=== PATIENT | female | born 1935 | race Caucasian/White ===

== ENCOUNTER → 2017-06-10 | Outpatient (CLI) | payer OTHER ==
[~2017-06-10] MED LIST: AMLO10TA2 PO; ASPI325T PO; ASPI81 PO; ATOR40TA16 PO; COMMODE 3-IN-11 MIS; DICL-86 PO; ENAL20TA81 PO; ENOX40P SQ; LOSA25TA PO; MELO-1 PO; METO25TA3 PO; METO50TA PO; MULTTAB67 PO; NORC5TAB PO; OMEP20CA5 PO; OXYC-360 PO; PRAM0.25 PO; TAB-TAB PO; TRAM50TA PO; WALKER WHEELS/F1 MIS
== END ==
LOC: CPRE 11:49
PROVIDERS: ATTEND Orthopaedic Surgery
DX: Z01.818 Encounter for other preprocedural examination (principal)

== ENCOUNTER 2017-06-29 05:09 | Inpatient (IN) | payer OTHER, MEDICARE ==
[~2017-06-29] VITALS: Ht 162.6 cm; Wt 85.0 kg
[~2017-06-29 05:09] MED LIST changes: -COMMODE 3-IN-11 MIS; -ENOX40P SQ; -NORC5TAB PO; -WALKER WHEELS/F1 MIS
[2017-06-29] MEDS ORDERED: CHLORHEXIDINE GLUCONATE 2 % 1 PACK (2 CLOTHS) TOPICAL PRN (05:30)
[2017-06-29] MEDS ORDERED: TRANEXAMIC ACID INJ 850 MG in SODIUM CHLORIDE 0.9% INJ 100 ML IV SCH ×2 (05:30→10:00)
[2017-06-29] MEDS ORDERED: SODIUM CHLORID 0.9% 500 ML IV PRN (05:30)
[2017-06-29] MEDS ORDERED: LACTATED RINGER'S 1000 ML IV PRN (05:30)
[2017-06-29] MEDS ORDERED: DEXAMETHASONE SOD PHOS 20 MG/5 ML VIAL IV PRN (05:30)
[2017-06-29] MEDS ORDERED: VANCOMYCIN 1000 MG/NS 250 ML (for <70 kg) IV SCH ×2 (05:30)
[2017-06-29] MEDS ORDERED: POVIDONE IODINE 7.5% SCRUB 118 ML BOTTLE TOPICAL SCH (05:30)
[2017-06-29] MEDS ORDERED: ceFAZolin 2 GM PREMIX 50 ML IV SCH (05:30)
[2017-06-29] MEDS ORDERED: INSULIN HUMAN REGULAR 1,000 UNITS/10 ML VIAL SQ PRN (05:30)
[2017-06-29] MEDS ORDERED: EXPAREL PERI-ARTICULAR INJECTION (TOTAL VOL. 60 ML) P-ARTICULR SCH ×2 (05:30)
[2017-06-29] MEDS ORDERED: POVIDONE IODINE 5% (ANTISEPSIS KIT) 4 APPLICATIONS EACH NARE PRN (05:30)
[2017-06-29] MEDS ORDERED: METOPROLOL TARTRATE 25 MG TAB PO PRN (05:30)
[2017-06-29] MEDS ORDERED: GENTAMICIN SULFATE 80 MG/2 ML VIAL ONE (06:22)
[2017-06-29] MEDS ORDERED: ACETAMINOPHEN 1000 MG/100 ML 100 ML IV ONE (06:41)
--- NOTE | 2017-06-29 06:47 | HHI.DCPOC ---
Discharge Care Plan Diagnosis: (1) Osteoarthritis of left hip (2) Status post total hip replacement, left Your Health Problems Are: Difficulty with ADL Goals to Promote Your Health * To prevent worsening of your condition and complications * To maintain your health at the optimal level Directions to Meet Your Goals Take your medications as prescribed Follow your dietary instruction Follow activity as directed Keep your appointments as scheduled Take your immunizations and boosters as scheduled If your symptoms worsen call your PCP, if no PCP go to Urgent Care Center or Emergency Room Smoking is Dangerous to Your Health. Avoid second hand smoke Call the 24-hour hour crisis hotline for domestic abuse at Reilly Hernandez Jun 29, 2017 06:47
--- NOTE | 2017-06-29 06:48 | HHI.FF ---
Face to Face Verification Diagnosis: (1) Osteoarthritis of left hip (2) Status post total hip replacement, left Physical Therapy Gait training, Transfer training, bed to chair Hip: Total hip Left LE Weight Bearing: WB as tolerated Left LE Range of Motion: Active ROM Nursing Nursing: Gallo teaching, Dressing changes Dressing Changes: Daily dressing change I have seen patient More Bardales on 06/29/17. My clinical findings support the need for the requested home health care services because: Limited ability to care for self High risk of falls I certify that my clinical findings support that this patient is homebound because: Post-op weakness Unsteady gait/balance Reilly Hernandez Jun 29, 2017 06:48
[2017-06-29] MEDS ORDERED: WALKER WHEELS/F1 MIS (06:49)
[2017-06-29] MEDS ORDERED: COMMODE 3-IN-11 MIS (06:49)
[2017-06-29] MEDS ORDERED: MIDAZOLAM HCL 2 MG/2 ML VIAL ONE (06:49)
--- NOTE | 2017-06-29 08:43 | PD.OP ---
cc: Chance Matias MD Operative Report Date of Surgery: Jun 29, 2017 Preoperative Diagnosis: Left hip severe osteoarthritis Postoperative Diagnosis: Same Procedure: Left total hip arthroplasty Anesthesia: Gen. Surgeon: Chance Matias Artificial Plastic Eye Maker(s): JUDITH Robbins The surgical procedure was assisted by my Advanced Registered Nurse Practitioner. My TIMBER MANAGEMENT ASSISTANT presence was necessary throughout this case for the manipulation and positioning of the surgical extremity. My TIMBER MANAGEMENT ASSISTANT was assisting me throughout the duration of this procedure. The skill set of an Advance Registered Nurse Practitioner was medically necessary to complete this procedure. During the surgical case, the pbx technician was working at the back table and the Advance Registered Nurse Practitioner was directly assisting me. Operation and Findings: IMPLANT DESCRIPTION: 1. Durand Gription Cup, acetabular size 48. 2. Durand AltrX polyethylene, neutral. 4. Corail femoral stem size 11, no collar, high offset. 5. Femoral head/neck metal, 32, +1. ESTIMATED BLOOD LOSS: 200 cc. JUSTIFICATION FOR PROCEDURE: The patient has end-stage osteoarthritis to the hip. There is an attached conservative measures pathway form in the chart that describes the nonoperative measures that were undertaken prior to consideration of surgical management. The patient understood the risks and benefits of surgical management. See my office notes for further details. PROCEDURE: The patient was brought back to the operative theatre. Adequate anesthesia was obtained. The patient received intravenous vancomycin and Ancef. The patient was carefully placed on the operative table. The lower extremity was prepped and draped in the usual sterile fashion. Fluoroscopic images were obtained. We made a standard anterior incision over the hip. We dissected through the TFL fascia, exposing the anterior capsule. Arthrotomy was performed in a T-shaped fashion. The capsule was tagged with a #2 FiberWire. End-stage arthritis was identified. Osteotomy was performed through the femoral neck exposing the acetabulum. Remnants of the labrum were resected and osteophytes were removed. We sequentially reamed the acetabulum. We trialed the hip and placed the final cup into position. This was done under fluoroscopic guidance to obtain the appropriate inclination and anteversion. A manhole cover was placed into the acetabular component. We then placed the final polyethylene into position and confirmed that it was well seated. Capsular attachments on the calcar and the inner aspect of the greater trochanter were resected. On the proximal aspect of the femur we used a rongeur , box osteotome, canal finder, sequential broaches and lateralizing rasp. We calcar planed the proximal femur. Then thoroughly irrigated the wound. We trialed the hip with the appropriate size stem. We placed the final stem in to position and trialed again. The hip was stable while it was externally rotated 70 degrees when the leg was lowered to the floor. The final head was applied, and final fluoroscopic images were obtained. The wound was thoroughly irrigated again. Interarticular injection of liposomal bupivacaine was given. The capsule was closed with #2 FiberWire and #1 Vicryl. The deep fascia was closed with a #2 Stratafix, followed by 2-0 Vicryl in the skin and cherrie. Postop plan is to weight-bear as tolerated. DVT prophylaxis will be performed with Manoj, ARIELLA evans, early mobilization, and Lovenox followed by aspirin. Chance Matias MD Jun 29, 2017 08:43
[2017-06-29] MEDS ORDERED: NORC5TAB PO (08:45)
[2017-06-29] MEDS ORDERED: MORPHINE SULFATE 4 MG/ML INJ IV PUSH PRN (08:45)
[2017-06-29] MEDS ORDERED: ACETAMINOPHEN/HYDROcodone 325 MG/5 MG TAB PO PRN (08:45)
[2017-06-29] MEDS ORDERED: NALOXONE HCL 0.4 MG/ML AMP IV PRN (08:45)
[2017-06-29] MEDS ORDERED: Post-op Orders (for Pharmacy) MISC XX ONE (08:45)
[2017-06-29] MEDS ORDERED: ALUMINUM/MAGNESIUM/SIMETH 30 ML CUP PO PRN (08:45)
[2017-06-29] MEDS ORDERED: MAGNESIUM HYDROXIDE SUSP 30 ML CUP PO PRN (08:45)
[2017-06-29] MEDS ORDERED: diphenhydrAMINE HCL 50 MG/ML VIAL IV PRN (08:45)
[2017-06-29] MEDS ORDERED: ENOX40P SQ (08:45)
[2017-06-29] MEDS ORDERED: ASPI325T PO (08:45)
[2017-06-29] MEDS ORDERED: SODIUM CHLORIDE 0.9% FLUSH 5 ML FLUSH IVF PRN (08:45)
[2017-06-29] MEDS ORDERED: BISACODYL 10 MG SUPP RECTAL PRN (08:45)
[2017-06-29] MEDS ORDERED: ONDANSETRON HCL 4 MG/2 ML VIAL IVP PRN (08:45)
[2017-06-29] MEDS ORDERED: DO NOT ADM ANY ANTICOAGULANT DRUGS PRN (09:04)
[2017-06-29] MEDS ORDERED: *morphine SULFATE 8 MG/ML PERIprocedure ONLY ONE ×2 (09:15→09:25)
[2017-06-29] MEDS: SODIUM CHLOR 0.9% 1000 ML INJ 1,000 ML IV SCH ×2 (09:18→18:40)
--- NOTE | 2017-06-29 09:30 | RADRPT ---
EXAM DATE/TIME: 06/29/2017 07:23 [facility] COMPARISON: No previous studies available for comparison. INDICATIONS : Post-op total left hip arthroplasty. MEDICAL HISTORY : None. SURGICAL HISTORY : Right total hip arthroplasty. ENCOUNTER: Initial ACUITY: 1 day PAIN SCORE: Non-responsive. LOCATION: Left hip. FINDINGS: The patient is status post a total hip arthroplasty with a bipolar prosthesis. Prosthesis is well-sea tomy. Alignment is anatomic. A fracture is not appreciated. CONCLUSION: Anatomic alignment. Carlos Ovalle MD FACR Board Certified Radiologist. This report was verified electronically.
[2017-06-29] MEDS ORDERED: *HYDROmorphone PF 1 MG VIAL PERIprocedural Use ONLY ONE (09:38)
[2017-06-29] MEDS: PRAMIPEXOLE DIHYDROCHLORIDE 0.25 MG TAB PO SCH (10:00)
--- NOTE | 2017-06-29 10:10 | RADRPT ---
EXAM DATE/TIME: 06/29/2017 09:29 [facility] COMPARISON: HIP LEFT (AP&LAT 2/3VWS) WO AP PELVIS, June 29, 2017, 7:23. INDICATIONS : Post-op left total hip arthroplasty. MEDICAL HISTORY : None. SURGICAL HISTORY : Right total hip arthroplasty. ENCOUNTER: Subsequent ACUITY: 1 day PAIN SCORE: 8/10 LOCATION: Left hip FINDINGS: There are bilateral hip arthroplasties. The orthopedic hardware appears well-positioned. No acute fra cture is seen. The arthroplasty on the left is new. The hardware appears well centered within the femur and in the a cetabulum. There is no evidence of complication. CONCLUSION: 1. The left hip arthroplasty appears in good position. Reilly Ovalle MD on June 29, 2017 at 10:08 Board Certified Radiologist. This report was verified electronically.
[2017-06-29 12:00] VITALS: BP 106/65; PULSE 84; RESP 16; TEMP 96.4; O2SAT 97
[2017-06-29] MEDS ORDERED: NEOSTIGMINE 3 MG/3 ML SYR IV ONE (12:00)
[2017-06-29] MEDS ORDERED: LACTATED RINGER'S 1000 ML INJ 1,000 ML IV ONE (12:00)
[2017-06-29] MEDS ORDERED: LIDOCAINE HCL 1% PF 5 ML AMPULE OTHER ONE (12:00)
[2017-06-29] MEDS ORDERED: GLYCOPYRROLATE 1 MG/5 ML SYRINGE IV PUSH ONE (12:00)
[2017-06-29] MEDS ORDERED: DEXAMETHASONE SOD PHOS 4 MG/ML VIAL IV ONE (12:00)
[2017-06-29] MEDS ORDERED: ROCURONIUM INJ 50 MG/5 ML SYRINGE IV PUSH ONE (12:00)
[2017-06-29] MEDS ORDERED: ONDANSETRON HCL 4 MG/2 ML VIAL IV PUSH ONE (12:00)
[2017-06-29] MEDS ORDERED: hydrALAZINE HCL 20 MG/ML VIAL IV ONE (12:00)
[2017-06-29] MEDS ORDERED: MORPHINE SULFATE 4 MG/ML INJ IV ONE (12:00)
[2017-06-29] MEDS ORDERED: LOSARTAN 50 MG TAB PO ONE (13:00)
[2017-06-29] MEDS: ACETAMINOPHEN/HYDROcodone 325 MG/5 MG TAB PO PRN ×3 (14:21→23:30)
[2017-06-29 16:00] VITALS: BP 118/57; PULSE 56; RESP 16; TEMP 96.7; O2SAT 95
[2017-06-29 16:39] VITALS: O2SAT 97
[2017-06-29 19:00] VITALS: BP 117/44; PULSE 58; RESP 17; TEMP 96.2; O2SAT 94
[2017-06-29] MEDS ORDERED: ZOLPIDEM TARTRATE 5 MG TAB PO PRN (21:00)
[2017-06-29] MEDS: SODIUM CHLORIDE 0.9% FLUSH 5 ML FLUSH IVF SCH (21:00)
[2017-06-29] MEDS ORDERED: ATORVASTATIN 40 MG TAB PO SCH (21:00)
[2017-06-29] MEDS: METOPROLOL TARTRATE 25 MG TAB PO SCH (21:09)
[2017-06-30] VITALS: BP 126/63; PULSE 57; RESP 16; TEMP 95.5; O2SAT 94
[2017-06-30] MEDS: SODIUM CHLOR 0.9% 1000 ML INJ 1,000 ML IV SCH (04:40)
[2017-06-30 07:00] LABS: HEMATOCRIT 28.8 % (35.0-46.0); MEAN CELL VOLUME 87.3 FL (80.0-100.0); MEAN CORPUSCULAR HEMOGLOBIN 29.1 PG (27.0-34.0); MEAN CORPUSCULAR HGB CONC 33.4 % (32.0-36.0); PLATELET COUNT 211 TH/MM3 (150-450); RED CELL DISTRIBUTION WIDTH 14.9 % (11.6-17.2); REVIEW FLAG FINAL; WHITE BLOOD COUNT 9.9 TH/MM3 (4.0-11.0)
[2017-06-30] MEDS ORDERED: DEXAMETHASONE SOD PHOS 20 MG/5 ML VIAL IV ONE (07:45)
[2017-06-30 08:00] VITALS: BP 126/60; PULSE 62; RESP 16; TEMP 98; O2SAT 95
[2017-06-30] MEDS ORDERED: ENOXAPARIN SODIUM 40 MG/0.4 ML SYRINGE SQ SCH (08:00)
[2017-06-30] MEDS: SODIUM CHLORIDE 0.9% FLUSH 5 ML FLUSH IVF SCH (09:00)
[2017-06-30] MEDS ORDERED: LOSARTAN 50 MG TAB PO SCH (09:00)
[2017-06-30] MEDS: PRAMIPEXOLE DIHYDROCHLORIDE 0.25 MG TAB PO SCH (09:00)
[2017-06-30] MEDS: METOPROLOL TARTRATE 25 MG TAB PO SCH (09:31)
[2017-06-30] MEDS: ACETAMINOPHEN/HYDROcodone 325 MG/5 MG TAB PO PRN ×2 (09:31→13:45)
--- NOTE | 2017-06-30 11:42 | HHI.PR ---
Objective Vitals Vital Signs Date Time Temp Pulse Resp B/P (MAP) Pulse Ox O2 Delivery O2 Flow Rate FiO2 06/30/17 08:00 98.0 62 16 126/60 (82) 95 06/30/17 00:00 95.5 57 16 126/63 (84) 94 06/29/17 19:00 96.2 58 17 117/44 (68) 94 06/29/17 16:39 97 21 06/29/17 16:00 96.7 56 16 118/57 (77) 95 06/29/17 12:00 96.4 84 16 106/65 (79) 97 I/O 06/29/17 06/29/17 06/29/17 06/30/17 06/30/17 06/30/17 07:00 15:00 23:00 07:00 15:00 23:00 Intake Total 50 ml 1940 ml 1182 ml 716 ml Output Total 400 ml Balance 50 ml 1540 ml 1182 ml 716 ml Intake Oral 240 ml 480 ml 480 ml IV Total 50 ml 100 ml 702 ml 236 ml Other 1600 ml Output Estimated Blood Loss 400 ml # Voids 2 3 3 # Bowel Movements 0 0 0 Result Diagram: 06/30/17 0607 Latasha Hirsch MD Jun 30, 2017 11:42
--- NOTE | 2017-06-30 11:43 | PD.CONS ---
HPI Service [facility] Consult Requested By Orthopedic Reason for Consult Medical management Primary Care Physician Ashley Marshall M.D. Diagnoses: History of Present Illness 85 years old female withH/O coronary artery disease and stenting in 2013, hypertension hyperlipidemia, right hip replacement partial hysterectomy and cholecystectomy, admitted for elective left total hip arthroplasty, [facility] consulted for medical management, stated she does not have any chest pain or short of breath, fever chills, abdominal pain diarrhea or constipation at this point, she denied any stroke in the past her pain is tolerable on pain management Review of Systems All systems reviewed and was positive for what is mentioned in history of present illness otherwise negative Past Family Social History Allergies: Coded Allergies: No Known Allergies (Unverified , 06/29/17) Past Medical History Hyperlipidemia hypertension Past Surgical History Partial hysterectomy right hip arthroplasty, cholecystectomy Family History Mother had breast cancer, sister had cervical cancer Social History She quit smoking 25 years ago, she drinks wine daily with dinner Physical Exam Vital Signs Vital Signs Date Time Temp Pulse Resp B/P (MAP) Pulse Ox O2 Delivery O2 Flow Rate FiO2 06/30/17 08:00 98.0 62 16 126/60 (82) 95 06/30/17 00:00 95.5 57 16 126/63 (84) 94 06/29/17 19:00 96.2 58 17 117/44 (68) 94 06/29/17 16:39 97 21 06/29/17 16:00 96.7 56 16 118/57 (77) 95 06/29/17 12:00 96.4 84 16 106/65 (79) 97 Physical Exam GENERAL: This is a well-nourished, well-developed patient, in no apparent distress. SKIN: No rashes, warm and dry HEAD: Atraumatic. Normocephalic. EYES: Pupils equal round and reactive. Extraocular motions intact. No scleral icterus. ENT: Nose without bleeding, or drainage, Airway patent. NECK: Trachea midline. Supple CARDIOVASCULAR: Regular rate and rhythm without murmurs, gallops, or rubs. RESPIRATORY: Fair air entry bilaterally. No wheezes, rales, or rhonchi. GASTROINTESTINAL: Abdomen soft, non-tender, nondistended. Positive bowel sounds MUSCULOSKELETAL: Extremities without clubbing, cyanosis, or edema. Pedal pulses appreciated NEUROLOGICAL: Awake and alert. Moves all extremity. Normal speech.no focal neurological deficit Laboratory Laboratory Tests Test 06/30/17 06:07 White Blood Count 9.9 Red Blood Count 3.30 Hemoglobin 9.6 Hematocrit 28.8 Mean Corpuscular Volume 87.3 Mean Corpuscular Hemoglobin 29.1 Mean Corpuscular Hemoglobin Concent 33.4 Red Cell Distribution Width 14.9 Platelet Count 211 Mean Platelet Volume 6.9 Result Diagram: 06/30/17 0607 Imaging Last Impressions Hip and Pelvis X-Ray 06/29/17 0840 Signed Impressions: Service Date/Time: Thursday, June 29, 2017 09:29 - CONCLUSION: 1. The left hip arthroplasty appears in good position. Reilly Ovalle MD Hip X-Ray 06/29/17 0000 Signed Impressions: Service Date/Time: Thursday, June 29, 2017 07:23 - CONCLUSION: Anatomic alignment. Carlos Ovalle MD Assessment and Plan Assessment and Plan 85 years old female admitted with Left TATI Hypertension Hyperlipidemia Sinus nonsymptomatic bradycardia Mild asymptomatic anemia>> need to follow as an outpatient History of coronary artery disease stenting in 2013 Daily alcohol consumption DVT prophylaxis Recommendation Agree with continuing Losartan amlodipine,, Lipitor If continued to be bradycardic we may need to hold Lopressor or decreased dose Clonidine added as needed for blood pressure optimization, monitor blood pressure Resume aspirin when okay with cardiology Patient on Lovenox for DVT prophylaxis per Latasha Day MD Jun 30, 2017 11:43
--- NOTE | 2017-06-30 11:50 | PD.ORT.PN ---
Subjective Post Op Day #: 1 Subjective Remarks The patient is OOB in chair with daughter at bedside. Patient states she has mild pain to the left hip and that her pain is better than prior to surgery. Objective Vitals Vital Signs Date Time Temp Pulse Resp B/P (MAP) Pulse Ox O2 Delivery O2 Flow Rate FiO2 06/30/17 08:00 98.0 62 16 126/60 (82) 95 06/30/17 00:00 95.5 57 16 126/63 (84) 94 06/29/17 19:00 96.2 58 17 117/44 (68) 94 06/29/17 16:39 97 21 06/29/17 16:00 96.7 56 16 118/57 (77) 95 06/29/17 12:00 96.4 84 16 106/65 (79) 97 I/O 06/29/17 06/29/17 06/29/17 06/30/17 06/30/17 06/30/17 07:00 15:00 23:00 07:00 15:00 23:00 Intake Total 50 ml 1940 ml 1182 ml 716 ml Output Total 400 ml Balance 50 ml 1540 ml 1182 ml 716 ml Intake Oral 240 ml 480 ml 480 ml IV Total 50 ml 100 ml 702 ml 236 ml Other 1600 ml Output Estimated Blood Loss 400 ml # Voids 2 3 3 # Bowel Movements 0 0 0 Result Diagram: 06/30/17 0607 Procedures Left TATI Objective Remarks Dressings changed with no drainage. Incision is well approximated. No redness or s/s of infection. Calf is soft and nontender. EHL/TA/G intact. 2+ pedal pulse. + SILT. Assessment & Plan Ortho Post Op Day #: 1 Problem List: Assessment and Plan POD #1: Left TATI 1. WBAT LLE 2. Lovenox followed by ASA for DVT prophylaxis 3. Ice to the left hip PRN 4. Stable for discharge home with home health today 5. F/U in the office in 1-[address] Matias or JUDITH Busch. Reilly Hernandez Jun 30, 2017 11:50
--- NOTE | 2017-06-30 20:33 | HHI.DS ---
Discharge Summary Admission Date Jun 29, 2017 at 05:09 Discharge Date: Jun 30, 2017 Admitting Diagnosis OA of the left hip Status post total hip replacement, left Diagnosis: (1) Osteoarthritis of left hip Diagnosis: Principal ICD Codes: M16.12 - Unilateral primary osteoarthritis, left hip (2) Status post total hip replacement, left Diagnosis: Principal ICD Codes: Z96.642 - Presence of left artificial hip joint Procedures Left TATI Brief History This is a 82 year old female patient with severe OA of the left hip. CBC/BMP: 06/30/17 0607 Significant Findings Laboratory Tests Test 06/30/17 06:07 Red Blood Count 3.30 MIL/MM3 (4.00-5.30) Hemoglobin 9.6 GM/DL (11.6-15.3) Hematocrit 28.8 % (35.0-46.0) Mean Platelet Volume 6.9 FL (7.0-11.0) PE at Discharge Dressings changed with no drainage. Incision is well approximated. No redness or s/s of infection. Calf is soft and nontender. EHL/TA/G intact. 2+ pedal pulse. + SILT. Hospital Course The patient was admitted to the hospital for severe OA of the left hip to have a left TATI. The patient's surgery went well without complication. The patient is WBAT on the LLE. The patient was placed on Lovenox followed by ASA for DVT prophylaxis. The patient is on a regular diet. The patient was discharged home with home health and will f/u with Dr. Matias or JUDITH Busch as previously scheduled. Pt Condition on Discharge: Stable Discharge Disposition: Disch w/ Home Health Serv Discharge Instructions Diet Instructions: As Tolerated, No Restrictions Activities You Can Perform: Weight Bearing as Alia Activities to Avoid: Strenuous Activity Follow up Referrals: Orthopedics with Chance Matias MD New Medications: Aspirin (Aspirin) 325 Mg Tab 325 MG PO DAILY for Prevent Blood Clot, #30 TAB 0 Refills Start Aspirin after Lovenox is completed. Commode 3-in-1 (Commode 3-in-1) 1 Mis Mis EA .ROUTE DIRECTED, #1 0 Refills Enoxaparin Inj (Lovenox Inj) 40 Mg/0.4 Ml Syr 40 MG SQ DAILY for Blood Clot Prevention for 10 Days, #10 SYRINGE 0 Refills Start Aspirin after Lovenox is completed. Hydrocodone-Acetaminophen ([place]) 5-325 mg Tab 1-2 TAB PO Q4H PRN for PAIN, #60 TAB 0 Refills Walker with Front Wheels (Walker with Front Wheels) 1 Mis Mis EA .ROUTE DIRECTED, #1 0 Refills Continued Medications: Amlodipine (Amlodipine) 10 Mg Tab 10 MG PO DAILY for Blood Pressure Management, #30 TAB 0 Refills Atorvastatin (Atorvastatin) 40 Mg Tab 40 MG PO HS for Cholesterol Management, #30 TAB 0 Refills Losartan (Losartan) 25 Mg Tab 10 MG PO DAILY for Blood Pressure Management, #15 TAB 0 Refills Metoprolol Tartrate (Metoprolol Tartrate) 25 Mg Tab 25 MG PO BID, #60 TAB 0 Refills Multiple Vitamin (Multiple Vitamin) 1 Tab 1 TAB PO DAILY for Nutritional Supplement, TAB 0 Refills Pramipexole (Pramipexole) 0.25 Mg Tab 0.25 MG PO DAILY for Parkinson Disease Mgmt, #30 TAB 0 Refills Discontinued Medications: Aspirin (Aspirin) 325 Mg Tab 325 MG PO DAILY, #30 TAB 0 Refills Meloxicam (Meloxicam) 15 Mg Tab 15 MG PO DAILY for Arthritis Pain, #30 TAB 0 Refills Tramadol (Tramadol) 50 Mg Tab 50 MG PO Q4H PRN for PAIN, TAB 0 Refills Reilly Hernandez Jun 30, 2017 20:33
[2017-06-30] MEDS ORDERED: DOCUSATE SODIUM 100 MG CAP PO SCH (21:00)
[2017-06-30] MEDS ORDERED: MULTIVITAMINS/MINERALS THERAPEUTIC TAB PO SCH (21:00)
== END 2017-06-30 15:41 | disposition home health service (06) | DRG 470 ==
LOC: HSDI 05:09 → N06A 10:41
PROVIDERS: ADMIT Orthopaedic Surgery; ATTEND Orthopaedic Surgery
PROC: 0SRB02A Replacement of Left Hip Joint with Metal on Polyethylene Synthetic Substitute, Uncemented, Open Approach (ICD-10-PCS; principal; 2017-06-29 06:52)
DX: M16.12 Unilateral primary osteoarthritis, left hip (principal); D64.9 Anemia, unspecified; Z96.641 Presence of right artificial hip joint; I10 Essential (primary) hypertension; I25.10 Atherosclerotic heart disease of native coronary artery without angina pectoris; E78.5 Hyperlipidemia, unspecified; Z95.5 Presence of coronary angioplasty implant and graft; Z87.891 Personal history of nicotine dependence
CPT/HCPCS: 73502; 76000; 85027; 86850; 86900; 86901; 94150; C1776; C9290; J0131; J0360; J0690; J1100; J1170; J1580; J1650; J2250; J2270; J2405; J2710; J3010; J3370; J7030; J7050; J7120